=== PATIENT | female | born 1980 | race Caucasian/White ===

== ENCOUNTER 2018-06-06 11:04 | Emergency (ER) | payer OTHER, SELFPAY ==
[2018-06-06 11:25] VITALS: BP 121/87; PULSE 84; RESP 14; TEMP 36.9; O2SAT 99
[2018-06-06 12:56] LABS: Add Manual Diff / Slide Review NO; Basophils Percent Auto 0.6 % (0-2); Eosinophils Percent Auto 1.8 % (2-4); Hematocrit 38.9 % (36-46); Hemoglobin 13.3 g/dL (12.0-16.0); Lymphocytes Percent Auto 20.8 % (25-40); Mean Corpuscular HGB Conc 34.3 % (30-36); Mean Corpuscular Hemoglobin 29.3 PG (26-34); Mean Corpuscular Volume 85.5 fL (80-100); Monocytes Percent Auto 8.2 % (3-14); Neutrophils Absolute Auto 5300 /uL (3000-5900); Neutrophils Percent Auto 68.6 % (50-75); Platelet Count 230 X10^3/uL (150-400); Red Blood Cell Count 4.55 X10^6/uL (4.0-5.2); White Blood Cell Count 7.7 X10^3/uL (4.5-11.0)
--- NOTE | 2018-06-06 13:16 | ED.GENADULT ---
HPI - General Adult General Chief complaint: Vaginal Bleeding Stated complaint: SEVERE VAGINAL BLEEDING Time Seen by Provider: 06/06/18 13:16 Source: patient Mode of arrival: ambulatory Limitations: no limitations History of Present Illness HPI narrative: Patient is a 38-year-old female with a history of polycystic ovary syndrome here for evaluation of vaginal bleeding. She states that she has had vaginal bleeding every day for the past several months. She states that it is normally just spotting but is enough that she has to wear a pad. She is not currently on control. She has had a tubal ligation in the past. She has seen her primary care doctor about this. She states that 3 days ago the bleeding suddenly became worse and she now has been bleeding multiple pads a day for the past 3 days. No fevers. Related Data Previous Rx's Medication Instructions Recorded norgestimate-ethinyl estradiol 1 tab PO DAILY #28 tab 06/06/18 [Ortho Tri-Cyclen (28) 0.18 mg(7)/0.215 mg(7)/0.25 mg(7)-35 mcg tablet] Allergies Allergy/AdvReac Type Severity Reaction Status Date / Time No Known Drug Allergies Allergy Verified 06/06/18 11:30 Review of Systems Constitutional Denies fatigue, Denies frequent falls and Denies headache(s) ENT Ears, Nose, Mouth, and Throat: Reports dizziness and Denies headache(s) Cardiovascular Denies chest pain and Denies dyspnea Respiratory Denies dyspnea Gastrointestinal Gastrointestinal: Denies abdominal pain, Denies change in bowel habits, Denies diarrhea, Denies nausea and Denies vomiting Genitourinary Denies hematuria and Denies dysuria Comments: Vaginal bleeding Musculoskeletal Denies myalgias and Denies arthralgias Integumentary/Breasts Denies lesions and Denies rash Neurologic Reports dizziness, Denies frequent falls and Denies headache(s) Endocrine Denies fatigue Hematologic/Lymphatic Denies easy bleeding and Denies easy bruising PFSH Medical History PCOS (polycystic ovarian syndrome) (Acute) Surgical History Hx of tubal ligation (Acute) Social History marital status: Smoking Status: Never smoker Exam Initial Vital Signs Initial Vital Signs: Vital Signs Temperature 98.4 F 06/06/18 11:25 Pulse Rate 84 06/06/18 11:25 Respiratory Rate 14 06/06/18 11:25 Blood Pressure 121/87 06/06/18 11:25 Pulse Oximetry 99 06/06/18 11:25 Const General: cooperative, well developed, well groomed and No acute distress Orientation: alert, awake and oriented x3 Resp Effort & Inspection: normal respiratory effort Auscultation: clear to auscultation bilaterally Cardio Rate: regular rate Rhythm: regular rhythm GI Inspection: non-distended Palpation: soft, No firm, No guarding, No rigid and No tender Skin Lesions: no lesions Rashes: no rashes Neuro General: alert, awake and oriented x3 Cognition: normal cognition Speech: speech normal Gait: normal gait Motor: muscle tone normal throughout Sensory Exam: no sensory deficits noted Extrem General: normal to inspection and capillary refill normal Psych Appearance: grossly normal and well kempt Course Orders Ordered: ED Orders 06/06/18 12:45 CBC [Complete Blood Count AUTO DIFF] Stat Thyroid Stimulating Hormone Stat 06/06/18 13:33 US pelvic complete Stat Vital Signs - 8 hr 06/06/18 11:25 Temperature 98.4 F Pulse Rate 84 Respiratory Rate 14 Blood Pressure 121/87 Pulse Oximetry 99 Medical Decision Making Lab Data Lab results reviewed: Yes I reviewed the patient's lab results. Result diagrams: 06/06/18 12:45 Lab Results 06/06/18 06/06/18 Range/Units 12:45 12:45 WBC 7.7 (4.5-11.0) X10^3/uL RBC 4.55 (4.0-5.2) X10^6/uL Hgb 13.3 (12.0-16.0) g/dL Hct 38.9 (36-46) % MCV 85.5 (80-100) fL MCH 29.3 (26-34) PG MCHC 34.3 (30-36) % RDW 13.0 (11.6-14.8) % Plt Count 230 (150-400) X10^3/uL Neut % (Auto) 68.6 (50-75) % Lymph % (Auto) 20.8 L (25-40) % [place] % (Auto) 8.2 (3-14) % Eos % (Auto) 1.8 L (2-4) % Baso % (Auto) 0.6 (0-2) % Neut # (Auto) 5300 (7611-4681) /uL TSH 2.10 (0.47-4.68) uIU/mL Imaging Data US - abdomen: Radiologist's impression: PROCEDURE: US PELVIC COMPLETE INDICATIONS: SEVERE VAGINAL BLEEDING TECHNIQUE: Real-time scanning was performed of the pelvic organs, with image documentation. Additional endovaginal scanning was necessary due to incomplete visualization of the adnexal and endometrial structures by transabdominal scanning. COMPARISON: None. FINDINGS: Transabdominal scanning: Limited scanning through the kidneys shows no hydronephrosis. No pathologic free abdominal or pelvic fluid. Endovaginal scanning: Uterus: Uterus is normal in size at 10.8 x 4.8 x 6.2 cm. The endometrium measures 12.4 mm in combined thickness. Ovaries: The right ovary measures 3.5 x 2.7 x 2.5 cm. The left ovary measures 3.4 x 2.5 x 2.5 cm and demonstrates a complex cyst that measures 16 x 14 x 13 mm. No abnormal vascularity can be seen of this nodule. Multiple follicles can be seen involving ovary. IMPRESSION: There is a likely hemorrhagic cyst involving the left ovary. At clinical discretion, a followup pelvic ultrasound is suggested in 6 weeks to assure resolution/ improvement. Multiple follicles can be seen involving each ovary, which is consistent with the history given by the patient of polycystic ovarian syndrome. Dictated by: Gilberto Collado M.D. on 06/06/2018 at 13:52 Approved by: Gilberto Collado M.D. on 06/06/2018 at 13:54 MDM Narrative Medical decision making narrative: Patient looks very well. He is not tachycardic. Is not hypotensive. Is not anemic. I did not do a pelvic exam today because of felt like it would not change my management. An ultrasound was performed per the patient's request. 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 We did discuss options to include waiting to see if the symptoms do not improve in the next couple days versus starting her on oral control pill. The patient opted to start on a control pill. She was given return precautions. Will hold on further workup for now. She expressed understanding and agreement with plan. Discharge Plan Departure Patient Disposition: Home Clinical Impression: Menometrorrhagia Discharge Date/Time: 06/06/18 15:23 Interventions: ED Discharge Assessment Last Done: 06/06/18 15:23 Instructions: DI for Abnormal Uterine Bleeding Activity Restrictions/Additional Instructions: continue all of your medications as directed. Keep all of your scheduled medical appointments. Start taking the control today like we discussed. Return to the emergency department for any new or worsening symptoms Prescriptions: New norgestimate-ethinyl estradiol [Ortho Tri-Cyclen (28)] 0.18/0.215/0.25 mg-35 mcg (28) tablet 1 tab PO DAILY Qty: 28 RF: 0
--- NOTE | 2018-06-06 13:29 | PC.NURSE ---
Pt w/ PCOS history w/ increased vaginal bleeding over last 3 days. Not orthostatic or tachycardic. [place] / warm and dry. No acute distress. Tubal ligation in July.
--- NOTE | 2018-06-06 13:33 | DI.US.S_ITS ---
PROCEDURE: US PELVIC COMPLETE INDICATIONS: SEVERE VAGINAL BLEEDING TECHNIQUE: Real-time scanning was performed of the pelvic organs, with image documentation. Additional endovaginal scanning was necessary due to incomplete visualization of the adnexal and endometrial structures by transabdominal scanning. COMPARISON: None. FINDINGS: Transabdominal scanning: Limited scanning through the kidneys shows no hydronephrosis. No pathologic free abdominal or pelvic fluid. Endovaginal scanning: Uterus: Uterus is normal in size at 10.8 x 4.8 x 6.2 cm. The endometrium measures 12.4 mm in combined thickness. Ovaries: The right ovary measures 3.5 x 2.7 x 2.5 cm. The left ovary measures 3.4 x 2.5 x 2.5 cm and demonstrates a complex cyst that measures 16 x 14 x 13 mm. No abnormal vascularity can be seen of this nodule. Multiple follicles can be seen involving ovary. IMPRESSION: There is a likely hemorrhagic cyst involving the left ovary. At clinical discretion, a followup pelvic ultrasound is suggested in 6 weeks to assure resolution/ improvement. Multiple follicles can be seen involving each ovary, which is consistent with the history given by the patient of polycystic ovarian syndrome. Dictated by: Gilberto Collado M.D. on 06/06/2018 at 13:52 Approved by: Gilberto Collado M.D. on 06/06/2018 at 13:54
[2018-06-06 15:23] VITALS: BP 124/89; PULSE 70; RESP 16; O2SAT 100
== END 2018-06-06 15:23 | disposition home or self-care (01) ==
PROVIDERS: Nurse Practitioner Family; Emergency Provider Emergency Medicine
DX: N92.1 Excessive and frequent menstruation with irregular cycle (principal)
CPT/HCPCS: 36415; 76830; 76856; 84443; 85025; 99282; 99284